=== PATIENT | male | born 1955 | race Caucasian/White ===

== ENCOUNTER 2017-04-12 09:15 | Outpatient (CLI) | payer BC ==
--- NOTE | 2017-04-12 10:07 | RAD ---
RADIOGRAPH CHEST 2 VIEWS: HISTORY: 61-year-old male with dyspnea. FINDINGS: There is no air space density, pulmonary edema, pleural effusion, pneumothorax, or cardiomegaly. Ther e is a small pulmonary nodule at the right mid/lower lung zone, stable since 08-18-10, representing a calcified granuloma. IMPRESSION: No acute cardiopulmonary findings. arcelia POS: [facility]
== END 2017-04-12 09:16 | disposition home or self-care (01) ==
LOC: RAD 09:15
PROVIDERS: ATTEND Internal Medicine Critical Care Medicine
DX: R06.00 Dyspnea, unspecified (principal)
CPT/HCPCS: 71020

== ENCOUNTER 2018-04-25 09:13 | Outpatient (CLI) | payer BC ==
--- NOTE | 2018-04-25 10:53 | RAD ---
CHEST PA AND LATERAL: History: 62-year-old male with history of dyspnea. Comparison: 04-22-17 FINDINGS: Heart size is within normal limits. Old granuloma in the right lower lobe region. No confluent pneumo kenneth, overt edema, or pleural effusion. IMPRESSION: No acute intrathoracic disease. Old granulomatous disease. Mild atherosclerosis. Stable from prior st udy. POS: [facility]
== END 2018-04-25 09:14 | disposition home or self-care (01) ==
LOC: RAD 09:13
PROVIDERS: ATTEND Internal Medicine Critical Care Medicine
DX: R06.00 Dyspnea, unspecified (principal); I70.90 Unspecified atherosclerosis
CPT/HCPCS: 71046

== ENCOUNTER 2019-04-22 10:15 | Outpatient (CLI) | payer BC ==
--- NOTE | 2019-04-22 10:45 | RAD ---
EXAM: Two views chest PROVIDED CLINICAL HISTORY: Dyspnea COMPARISON: 04/25/2018 and 04/12/2017 FINDINGS: Cardiac silhouette and pulmonary vasculature are within normal limits. There is a stable nodular den sity seen at the right lower lung zone which was also reportedly present on prior study in 2010 and may represent a calcified granuloma. The lungs are otherwise clear. Mild degenerative changes are pre sent in the thoracic spine. IMPRESSION: No acute cardiopulmonary process.
== END 2019-04-22 10:16 | disposition home or self-care (01) ==
LOC: RAD 10:15
PROVIDERS: ATTEND Internal Medicine Critical Care Medicine
DX: R06.00 Dyspnea, unspecified (principal)
CPT/HCPCS: 71046

== ENCOUNTER 2020-08-19 10:07 | Outpatient (CLI) | payer BC | END 2020-08-19 10:08 | disposition home or self-care (01) | LOC: BICRAD 10:07 | PROVIDERS: ATTEND Internal Medicine Critical Care Medicine | DX: R06.00 Dyspnea, unspecified (principal) | CPT/HCPCS: 71046 ==

== ENCOUNTER 2021-04-16 13:51 | Outpatient (CLI) | payer BC | END 2021-04-16 13:52 | disposition home or self-care (01) | LOC: ULT 13:51 | PROVIDERS: ATTEND Internal Medicine Nephrology | DX: N18.30 Chronic kidney disease, stage 3 unspecified (principal); R93.421 Abnormal radiologic findings on diagnostic imaging of right kidney; R93.422 Abnormal radiologic findings on diagnostic imaging of left kidney | CPT/HCPCS: 76770 ==

== ENCOUNTER 2021-10-27 10:19 | Outpatient (CLI) | payer BC | END 2021-10-27 10:20 | disposition home or self-care (01) | LOC: RAD 10:19 | PROVIDERS: ATTEND Internal Medicine Critical Care Medicine | DX: R06.00 Dyspnea, unspecified (principal) | CPT/HCPCS: 71046 ==